=== PATIENT | female | born 1960 | race Caucasian/White ===

== ENCOUNTER → 2017-06-29 | Outpatient (CLI) | payer OTHER ==
[~2017-06-29] MED LIST: ABILIFY; ABILIFY PO; ABILIFY5 MG PO; ACETAMINOPHEN650 M1 PO; ADVAIR 250-501 EACH; ALBUTEROL17 GM INH; AMOXICILLIN875 MG PO; APIDRA (NF100 UNITS/; ASPIRIN ENTERI325 M1 PO; ASPIRIN81 M2 PO; AZITHROMYCIN250 MG PO; AZITHROMYCIN500 MG PO; BACTROBAN22 GM TP; BENTYL20 MG PO; BUSPAR PO; BUSPAR30 MG; BUSPAR30 MG PO; BUSPIRONE HCL30 MG PO; CARAFATE PO; CHANTIX1 DOSE-PAC; CHANTIX1 DOSE-PAC PO; CIPRO750 MG PO; CLARITIN10 M2 PO; CLEOCIN HCL300 M1 PO; CLINDAMYCIN HC300 MG PO; CYMBALTA30 MG PO; DAKIN'S MODIF1000 ML EXT; DETROL LA PO; DICLOFENAC PO; DYAZIDE 37.5/251 CAP PO; FARXIGA10 MG PO; FISH OIL 1,0001 EAC1 PO; FISH OIL 1,2001 EAC1 PO; FLEXERIL10 MG PO; GABAPENTIN600 MG PO; GLIPIZIDE10 MG PO; GLUCOPHAGE XR500 MG PO; GLUCOPHAGE500 M1 PO; GLUCOPHAGE500 MG PO; GLUCOTROL PO; GLUCOTROL10 MG; GLUCOTROL10 MG PO; HUMALOG100 U/ML IM; HUMALOG100 U/ML SQ; HUMALOG100 U/ML SUBQ; HYDROCHLOROTHIA25 MG PO; HYOSCYAMINE0.375 M2 PO; HYOSCYAMINE0.375 M4 PO; IMITREX PO; JANUVIA PO; KLONOPIN PO; LANTUS SOLOSTAR3 ML SUBQ; LANTUS100 U/ML SQ; LANTUS100 U/ML SUBQ; LASIX20 MG PO; LEVAQUIN750 MG PO; LEVEMIR SUBQ; LEVEMIR100 UNITS/ IM; LIORESAL10 MG PO; LIPITOR20 MG PO; LIPITOR40 MG PO; LISINOPRIL PO; LISINOPRIL20 MG PO; LORTAB 7.5-3251 EACH PO; LORTAB 7.5-5001 TAB PO; LORTAB 7.51 TAB PO; METFORMIN HCL1000 M1 PO; METFORMIN HCL500 M1 PO; METFORMIN PO; MULTI-VITAMIN1 TAB; NEURONTIN PO; NEURONTIN600 MG PO; NEXIUM PO; NORCO 7.5-3251 EACH PO; NOVOLOG100 U/ML SUBQ; OMEPRAZOLE20 M1 PO; PERCOCET 7.5-31 EACH PO; PLETAL100 M2 PO; PLETAL100 MG PO; PREDNISONE PO; PREDNISONE1 MG PO; PREDNISONE5 M1 PO; PREDNISONE50 MG PO; PRILOSEC PO; PRILOSEC20 MG PO; PROAIR HFA8.5 GM IH; PROAIR HFA8.5 GM INH; PROVENTIL0.83 MG/ML IH; PYRIDIUM PO; RISPERDAL0.5 M1 DOB; RISPERIDONE PO; ROBAXIN 750750 M1 PO; ROBAXIN 750750 MG PO; ROBAXIN PO; SENNA8.6 M2 PO; SEROQUEL PO; SEROQUEL XR300 M1 PO; SERTRALINE HCL100 M1 PO; SINGULAIR PO; SYMBICORT INH; TIZANIDINE HCL4 M1 PO; TRAZODONE HCL100 MG PO; TRIAMTERENE-HCT1 TA6 PO; TRICOR145 MG PO; VIBRAMYCIN100 M1 PO; VOLTAREN25 MG PO; VOLTAREN75 MG PO; WELCHOL625 MG PO; WELLBUTRIN XL PO; ZANAFLEX PO; ZANAFLEX4 M1 PO; ZESTRIL40 MG PO; ZITHROMAX PO; ZITHROMAX500 MG PO; ZOLOFT PO; ZOLOFT100 MG PO; ZYRTEC10 M1 PO; [UNRECOGNIZED DRUG - OTHER]; [UNRECOGNIZED DRUG - OTHER]
--- NOTE | ~2017-06-29 | MY29 ---
[facility] RADIOLOGY TEXT RESULTS PATIENT: SAI HOLLEY LOCATION: [facility] : 60 UNIT #: [id number] AGE: [address]: Edelmira Muir MD SEX: F ORDER DR: [id number] [facility]. [place], [place] [address] [id number] O MR#: [id number] Acc #: [id number] NAME: SAI HOLLEY : 1960 SEX: F STUDY DATE/TIME: 06/29/2017 7:59 UNIT: [facility] ROOM: STUDY DESCRIPTION: MY [facility] SCREENING W/ CAD BILAT Attending Physician: Edelmira Muir M.D. Referring Physician: Edelmira Muir M.D. Ordering Physician: Edelmira Muir M.D. Primary Care Physician: Edelmira Muir M.D. MEDICAL IMAGING REPORT This report is preliminary unless electronic signature is present EXAM Digital screening mammograms 06/29/2017 HISTORY 57-year-old woman, no risk elevation. Annual screening. COMPARISON STUDIES Mammograms 05/24/2007 and 11/05/2012. FINDINGS Digital imaging of each breast was completed utilizing screening protocol. Review includes FDA-approved CAD device. Breast parenchyma is partially fatty replaced. Increasing benign calcifications are noted in each breast. There are no suspicious microcalcifications. There is no interval occurring breast mass and no architectural distortion. IMPRESSION Negative mammogram. Annual screening recommended. BIRADS: 1 Negative. Patients over the age of 40 are entered into a reminder system with target due date for the next mammogram. A result letter will also be sent to the patient. Dictated by... David Heaton M.D. THIS IS AN ELECTRONICALLY VERIFIED REPORT David Heaton M.D. at 07/01/2017 8:08 AM [facility] A Service of [facility] RADIOLOGY TEXT RESULTS PATIENT: SAI HOLLEY [id number] : 60 UNIT #: [id number] AGE: [address]: Edelmira Muir MD SEX: F ORDER DR: TD: 06/30/2017 16:41 JOB #: [id number] MEDICAL IMAGING REPORT Page 1 of 1 COPY
== END | disposition home or self-care (01) ==
LOC: CWCC 07:25
DX: Z12.31 Encounter for screening mammogram for malignant neoplasm of breast (principal)
CPT/HCPCS: G0202